=== PATIENT | male | born 1975 | race Caucasian/White ===

== ENCOUNTER 2021-05-17 00:06 | Emergency (ER) | payer MEDICAID ==
[~2021-05-17] VITALS: Ht 172.7 cm; Wt 107.0 kg
[2021-05-17] MEDS ORDERED: KETOROLAC 60MG/2ML VIAL IM ONE (04:45)
[2021-05-17 04:52] VITALS: BP 125/85
[2021-05-17] MEDS ORDERED: KETOROLAC 15MG/ML VIAL IV ONE (05:00)
[2021-05-17] MEDS ORDERED: ACETAMINOPHEN 325MG TABLET PO ONE (05:00)
[2021-05-17 05:20] LABS: BASOPHILS % 0.3 % (0.0-2.0); EOSINOPHILS % 4.1 % (0.0-5.0); HEMATOCRIT. 44.1 % (42.0-52.0); HEMOGLOBIN. 14.9 g/dL (14.0-18.0); LYMPHOCYTES % 28.3 % (20.0-50.0); MEAN CORPUSCULAR HEMOGLOBIN 27.2 pg (28.0-32.0); MEAN CORPUSCULAR VOLUME 80.6 fL (80.0-94.0); MEAN PLATELET VOLUME 8.1 fl (7.4-10.4); MONOCYTES % 9.3 % (2.0-8.0); PLATELET 214 x1000/uL (130-400); RED BLOOD CELL COUNT 5.47 mill/uL (4.7-6.1); RED CELL DISTRIBUTION WIDTH 13.6 % (11.6-14.6)
[2021-05-17 05:50] LABS: CHLORIDE 105 mEq/L (98-107)
[2021-05-17] MEDS ORDERED: IOHEXOL-300 100 ML BOTTLE ONE (06:36)
[2021-05-17] MEDS ORDERED: AMOX-424 MT (06:39)
[2021-05-17] MEDS ORDERED: IBUP-2029 MT (06:39)
[2021-05-17] MEDS ORDERED: TETANUS, DIPHTHERIA, PERTUSSIS VAC/PF 0.5ML (>10YR OLD) IM ONE (06:45)
== END 2021-05-17 07:01 | disposition home or self-care (01) ==
LOC: ER 00:06
DX: R25.2 Cramp and spasm (principal); R03.0 Elevated blood-pressure reading, without diagnosis of hypertension
CPT/HCPCS: 36415; 70491; 80048; 85025; 85651; 86141; 90471; 90715; 96374; 99285; J1885; Q9967